=== PATIENT | male | born 1955 | race Caucasian/White ===

== ENCOUNTER 2022-07-03 07:23 | Outpatient (CLI) | payer OTHER, SELFPAY ==
[2022-07-03 11:45] LABS: Albumin* 4.6 g/dL (3.3-5.0); Chloride* 104 mmol/L (96-114)
[2022-07-03 11:46] LABS: Potassium* 4.6 mmol/L (3.6-5.1); Sodium* 142 mmol/L (135-149)
[2022-07-03 11:48] LABS: Alanine Aminotransferase* 26 U/L (4-50); Alkaline Phosphatase* 72 U/L (40-150); Aspartate Amino Transferase* 27 U/L (12-35); Bilirubin Total* 0.9 mg/dL (0.1-1.5); Blood Urea Nitrogen* 26 mg/dL (7-30); Carbon Dioxide* 29 mmol/L (20-32); Cholesterol* 214 mg/dL (90-199); Creatinine* 0.9 mg/dL (0.5-1.5); Estimated Glomerular Filt Rate 95 ml/min; Glucose* 112 mg/dL (60-115); Total Protein* 7.9 g/dL (6.0-8.3)
[2022-07-03 11:49] LABS: Calcium* 9.4 mg/dL (8.4-10.6); HDL Cholesterol* 43 mg/dL (>=40); LDL Cholesterol Calculated 137 mg/dL (<100); Triglycerides* 172 mg/dL (40-149)
[2022-07-03 13:52] LABS: Free T4 Free Thyroxine* 1.17 ng/dL (0.70-1.85)
== END 2022-07-03 07:24 | disposition home or self-care (01) ==
LOC: NFLDREF 07:23
PROVIDERS: PCP Family Medicine; Visit Provider Family Medicine
DX: Z00.00 Encounter for general adult medical examination without abnormal findings (principal); E03.9 Hypothyroidism, unspecified; E78.5 Hyperlipidemia, unspecified; R73.03 Prediabetes
CPT/HCPCS: 80053; 80061; 84439; 84443

== ENCOUNTER 2023-07-22 09:11 | Outpatient (CLI) | payer MEDICARE, OTHER, SELFPAY ==
--- OUTSIDE RECORDS SUMMARY | 2023-07-22 13:49 | XMS_ITS | Clinical Summary ---
Author Name Unknown Organization [facility] Address [place], [place] [address] Care Team Providers Care Management Assistant Name Role Phone Pcp, No Primary Care Provider Unavailabl e Allergies No known active allergies Medications Medication Sig Dispensed Refills Start Date End Date Status pravastatin (PRAVACHOL) 20 mg tablet Take 20 mg by mouth once daily. 0 04/19/2017 Active levothyroxine (SYNTHROID) 112 mcg tabletIndications:Health examination of defined subpopulation Take 1 tablet by mouth before breakfast. 0 11/17/2019 Active acetaminophen (TYLENOL EXTRA STRGTH) 500 mg tablet Take 500 mg by mouth every 6 hours if needed. Take 500 mg by mouth every 6 (six) hours as needed for pain. 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 repair Myalgia and myositis, unspecified 10/21/2009 12/07/2019 Unspecified hypothyroidism 02/01/2007 0 10/21/2009 Other psoriasis 02/01/2007 12/07/2019 Impaired fasting glucose 07/2019 Immunizations Name Administration Dates Next Due Influenza A (H1N1), Inactivated 06/03/2009 Influenza A (H1N1), Inactiva marixa (Age >=3 Years) 06/03/2009 Influenza RIV4 (Age 18+ Year s) PRESERV FREE 03/21/2019 Influenza Virus, Unspecified 03/21/2019, 03/07/2017,03/21/2016,2014,03/07/2014,03/02/2012,03/17/2011,1 ,03/04/2009 Influenza, IIV3 (Age 6-35 mos) 03/02/2012 Influenza, IIV3 (Age >=3 years) 03/17/20 11,03/24/2010,03/04/2009,2005 Influenza, IIV4 03/06/2022,,03/07/2020,2018,06/03/2009 Tdap 06/29/2017,03/13/2008 Zoster (Shingrix-RZV, recombinant) 11/13/2022 Zoster (Zostavax-ZVL, live) 04/05/2015 Family History Medical History Relation Name Comments Good Health Brother 3 Good Health Brother 4 Good Health Daughter 2 Diabetes Father Other Mother leg problems Thyroid Disease Mother Good Health Sister 2 Relation Name Status Comments Brother 1 Alive Brother 2 Alive Brother 3 Brother 4 Daughter 1 Alive Daughter 2 Father Alive Mother Alive Sister 1 Alive Sister 2 Social History Tobacco Use Types Packs/Day Years Used Date Smoking Tobacco: Former Cigarettes 1.5 32 0 07/08/1972 - 07/08/2004 Smokeless Tobacco: Never Tobacco Cessation:Counseling Given: Not Answered Alcohol Use Standard Drinks/Week Comments Yes 0 (1 standard drink = 0.6 oz pure alcohol) Quit around the time he quit smoking. - 1 drink per month PHQ-2 Answer Date Recorded PHQ-2 TOTAL SCORE 0 11/17/2019 Social Connections Answer Date Recorded Frequency of Communication with Friends and Fami ly 0 11/28/2022 Financial Resource Strain Answer Date R ecorded Difficulty of Paying Living Expenses 3 11/28/2022 Difficulty of Paying Living Expenses Not on file 11/28/2022 Food Insecurity Answer Date Recorded Worried About Running Out of Food in the Last Ye ar 1 11/28/2022 Transportation Needs Answer Date Record ed Lack of Transportation (Medical) 1 11/28/2022 Housing Stability Answer Date Recorded Unable to Pay for Housing in the Last Year 1 11/28/2022 Sex and Gender Information Value Date Recorded Sex Assigned at Not on file Gender Identity Not on file Sexual Orientation Not on file Obstetrics History Last Filed Vital Signs Vital Sign Reading Time Taken Comments Blood Pressure 112/76 11/30/2022 11:55 AM CDT Pulse 78 11/30/2022 11:55 AM CDT Temperature 36.8 ??C (98.2 ??F) 11/17/2019 1:33 PM CD T Respiratory Rate 18 11/30/2022 11:5 5 AM CDT Oxygen Saturation 98% 11/30/2022 11: 55 AM CDT Inhaled Oxygen Concentration - - Weight 90.2 kg (198 lb 14.4 oz) 023 11:55 AM CDT Height 179 cm (5' 10.47) 11/30/2022 11 :55 AM CDT Body Mass Index 28.16 11/30/2022 11:55 AM CDT Plan of Treatment Health Maintenance Due Date Last Done Comments HIV for age 15-65 1972 Hepatitis C screening for ag e 18-79 12/27/1975 Lipids for age 45-75 07/08/2015 07/08/2010, 03/13/20 08 Colonoscopy through age 75 05/25/2018 05/25/2008 Depression screening for age 12+ 11/16/2020 11/17/19 20 AAA screening age 65-74 2022 Pneumococcal series for age 65+ (1 of 1 - PCV) 2022 Zoster (shingles) series for age 50+ (3 of 3) 01/08/2023 11/13/2022, 04/05/2015 COVID-19 vaccine series (2022- season) 2023 03/07/2022, 05/03/2021, 10/11/2020, Additional history exists Influenza for age 65+ 02/05/2023 03/06/2022 , 05/03/2021, 03/07/2020, Additional history exists BMI (ht and wt on same day) for age 18+ 12/01/2023 11/30/2022, 10/27/2021, 11/17/2019, Additional history exists Tetanus booster 06/29/2027 06/29/2017, 03/13/2008 Tdap Completed 06/29/2017, 03/13/2008 Care Teams Management Assistant Relationship Specialty Start Date End Date Pcp, No . PCP - General 05/19/17
== END 2023-07-22 09:12 | disposition home or self-care (01) ==
LOC: NFLDREF 13:43
PROVIDERS: PCP Family Medicine; Referring Provider Family Medicine; Visit Provider Family Medicine
DX: E78.5 Hyperlipidemia, unspecified (principal); R73.03 Prediabetes; E03.9 Hypothyroidism, unspecified; N40.0 Benign prostatic hyperplasia without lower urinary tract symptoms
CPT/HCPCS: 80053; 80061; 84443; G0103

== ENCOUNTER 2023-08-31 07:02 | Outpatient (CLI) | payer MEDICARE, OTHER, SELFPAY ==
--- NOTE | 2023-08-31 07:15 | US_ITS ---
Patient: HAMILTON PINEDA Facility:?[facility] Patient ID:?[id number] Site Patient ID:?[id number]. Site :?[id number] Study:?US-Abdomen AAA SCREENING-08/31/2023 7:39:03 AM Ordering Physician:SAGAR POWERS Final Report: TECHNIQUE: Ultrasound of the abdominal aorta. INDICATION: Screening for AAA. FINDINGS: Proximal abdominal aorta: 2.6 cm. Middle aorta: 2.1 cm. Distal aorta: 2.1 cm. Right iliac artery: 1.2 cm. Left iliac artery: 1.1 cm. IMPRESSION: No evidence for abdominal aortic aneurysm. Dictated by Glenroy Morocho MD @ 08/31/2023 12:12:53 PM Signed by:?Glenroy Morocho MD @08/31/2023 12:12:53 PM (Electronic Signature)
== END 2023-08-31 07:03 | disposition home or self-care (01) ==
PROVIDERS: PCP Family Medicine; Visit Provider Family Medicine
DX: Z13.6 Encounter for screening for cardiovascular disorders (principal)
CPT/HCPCS: 76706

== ENCOUNTER 2024-07-20 08:50 | Outpatient (CLI) | payer MEDICARE, OTHER, SELFPAY | END 2024-07-20 08:51 | disposition home or self-care (01) | LOC: NFLDREF 07-22 03:19 | PROVIDERS: PCP Family Medicine; Referring Provider Family Medicine; Visit Provider Family Medicine | DX: E78.5 Hyperlipidemia, unspecified (principal); E03.9 Hypothyroidism, unspecified | CPT/HCPCS: 80053; 80061; 84443 ==

== ENCOUNTER 2025-03-22 13:23 | Outpatient (CLI) | payer MEDICARE, OTHER, SELFPAY ==
--- NOTE | 2025-03-22 13:45 | CRLHL7_ITS ---
For Patients: As a result of the Century Cures Act, medical imaging exams and procedure reports are released immediately into your electronic medical record. You may view this report before your referring provider. If you have questions, please contact your health care provider. CLINICAL HISTORY: Right lower quadrant pain TECHNIQUE: Ulrich scale imaging was performed of the scrotum. In addition color Doppler and spectral Doppler analysis was performed of the testes. FINDINGS: The testes demonstrate normal arterial and venous blood flow on color Doppler and spectral Doppler analysis. The testes have uniform echogenicity with no evidence of a suspicious mass or area of inflammation. The right testis measures 3.8 x 1.7 x 3 centimeters the left testis measures 3.8 x 1.5 x 2.8 centimeters. There is a 3 millimeter anechoic cyst in the right mid testis. Right epididymal cyst measuring 0.7 centimeters. Left epididymal cyst measuring 1.5 centimeters. The epididymis otherwise appears normal bilaterally. [id number] right varicoceles. Large left varicoceles. IMPRESSION: 1. 3 millimeter cyst in the right mid testis 2. Mild to moderate right varicoceles large left varicoceles 3. Epididymal cysts bilaterally. Dictated by Amarilis Hunter MD @ 03/26/2025 7:00:23 AM (Electronically Signed)
--- NOTE | 2025-03-22 14:30 | CRLHL7_ITS ---
For Patients: As a result of the Century Cures Act, medical imaging exams and procedure reports are released immediately into your electronic medical record. You may view this report before your referring provider. If you have questions, please contact your health care provider. CLINICAL HISTORY: Right lower quadrant pain Technique soft tissue ultrasound of the right groin with grayscale and color Doppler FINDINGS/IMPRESSION: No inguinal hernia seen. Normal morphology inguinal nodes. Dictated by Amarilis Hunter MD @ 03/26/2025 6:57:02 AM (Electronically Signed)
== END 2025-03-22 13:24 | disposition home or self-care (01) ==
LOC: US 13:24
PROVIDERS: PCP Family Medicine; Visit Provider Surgery
DX: R10.31 Right lower quadrant pain (principal); N44.2 Benign cyst of testis; I86.1 Scrotal varices; N45.1 Epididymitis; M79.604 Pain in right leg
CPT/HCPCS: 76870; 76882; 93976